=== PATIENT | male | born 1995 | race Caucasian/White ===

== ENCOUNTER 2019-09-24 00:51 | Emergency (ER) | payer OTHER ==
--- NOTE | 2019-09-24 01:37 | ED Physician Documentation ---
History of Present Illness - Stated complaint Stated Complaint: LT FT PX - Chief complaint Chief Complaint: Trauma Ext - History obtained from History obtained from: Patient - History of Present Illness Timing: Enter time (15:00), Today Pain level max: 6 Pain level now: 3 Improved by: rest, non-weight bearing Worsened by: weight-bearing, palpation (particularly plantar surface at 2nd and 3rd metatarsal heads) - Additonal information Additional information: denies injury Review of Systems Skin: reports: Reviewed and negative Musculoskeletal: reports: Extremity pain, Pain with weight bearing. denies: Extremity swelling Neurologic: denies: Focal weakness, Numbness PD PAST MEDICAL HISTORY - Past Medical History Past Medical History: No - Present Medications Home Medications: Ambulatory Orders Medication Instructions Recorded Confirmed HYDROcod/ACETAM 5/325 [Cisco 5/325] 1 - 2 ea PO Q6H PRN #15 tablet 09/24/19 Indomethacin 50 mg PO TID PRN #20 capsule 09/24/19 - Allergies Allergies/Adverse Reactions: Allergies Allergy/AdvReac Type Severity Reaction Status Date / Time nickel Allergy Rash Verified 09/24/19 01:01 - Living Situation Living Arrangement: reports: At home - Social History Does the pt smoke?: No PD ED PE NORMAL - Vitals Vital signs reviewed: Yes - General General: Alert and oriented X 3, No acute distress, Well developed/nourished - Derm Derm: Normal color, Warm and dry, No rash - Extremities Extremities: No deformity, Normal ROM s pain, No edema, No calf tenderness / cord, Other (mild tenderness to palpation over 2nd and 3rd metatarsal heads (left), particularly on plantar surface) - Neuro Neuro: No motor deficit, No sensory deficit Results - Vitals Vitals: Oxygen O2 Source Room air - Rads (name of study) xrays left foot Radiology: Prelim report reviewed, See rad report PD MEDICAL DECISION MAKING - ED course Complexity details: reviewed results, re-evaluated patient, considered differential, d/w patient Departure - Departure Disposition: 01 Home, Self Care Clinical Impression: Freiberg's infraction Condition: Good Instructions: ED Acute Pain [facility]O Prescriptions: HYDROcod/ACETAM 5/325 [Cisco 5/325] 1 - 2 ea PO Q6H PRN #15 tablet PRN Reason: Pain Indomethacin 50 mg PO TID PRN #20 capsule PRN Reason: Pain Discharge Date/Time: 09/24/19 03:54
[2019-09-24] MEDS ORDERED: HYDROcod/ACETAM 5/325 MG TABLET PO STA (01:59)
[2019-09-24] MEDS ORDERED: INDOMETHACIN 25 MG CAPSULE PO STA (02:02)
[2019-09-24] MEDS ORDERED: COLCHICINE 0.6 MG TABLET PO STA (02:03)
--- NOTE | 2019-09-24 02:28 | XRAY Report ---
Reason: left foot pain Procedure Date: 09/24/2019 Accession Number: [id number] / [id number] Procedure: XR - Foot 3 View LT CPT Code: Final Report FULL RESULT: EXAM: LEFT FOOT RADIOGRAPHY EXAM DATE: 09/24/2019 02:14 AM CLINICAL HISTORY: Left foot pain. COMPARISON: None. TECHNIQUE: 3 views. FINDINGS: Bones: No acute displaced fractures or suspicious bony lesion. Slight flattening deformity of the second metatarsal head is noted. Joints: No dislocation. Soft Tissues: Mild dorsal soft tissue swelling. IMPRESSION: Slight flattening deformity of the second metatarsal head, which could represent early Freiberg's infraction. No displaced acute fracture. RADIA
[2019-09-24 02:34] VITALS: BP 142/81
== END 2019-09-24 03:54 | disposition home or self-care (01) ==
LOC: ED 00:51
DX: M92.72 Juvenile osteochondrosis of metatarsus, left foot (principal)
CPT/HCPCS: 73630; 99283; A9270

== ENCOUNTER 2019-10-31 12:19 | Outpatient (CLI) | payer OTHER ==
--- NOTE | 2019-10-31 15:01 | MRI Report ---
Reason: PAIN IN LT FOOT Procedure Date: 10/31/2019 Accession Number: [id number] / [id number] Procedure: MRI - Foot LT W/WO CPT Code: Final Report FULL RESULT: EXAM: LEFT FOREFOOT MRI WITHOUT AND WITH CONTRAST EXAM DATE: 10/31/2019 02:09 PM. CLINICAL HISTORY: Left foot metatarsal pain without trauma. COMPARISON: FOOT 3 VIEW LT 09/24/2019 1:59 AM. TECHNIQUE: Multiplanar, multisequence T1-weighted and fluid-sensitive sequences of the forefoot before and after administration of intravenous contrast. IV contrast: 10 cc Gadavist. Other: None. FINDINGS: Bones: There is mild cortical irregularity with minimal subjacent marrow edema and enhancement located along the plantar and lateral aspect of the base of the second metatarsal slightly distal to the second tarsometatarsal joint space and there is edema and enhancement of the immediately overlying soft tissues. This finding is best seen on the short axis images, series 1101 image 30. The opposing third metatarsal base demonstrates normal signal and contour. Findings are nonspecific. This could reflect a rheumatologic erosion. It is not a typical appearance for infection. It is not concerning for neoplasm. It is not likely posttraumatic. Osseous structures elsewhere are normal. No further potential erosions elsewhere. Joints: No subluxations. No effusions. The [id number] complex is unremarkable. The visualized plantar plates are unremarkable. Articular Cartilage: Unremarkable. Tendons: The flexor and extensor tendons are unremarkable. Musculature: No edema or fatty atrophy. Other: No Mortons neuroma. No intermetatarsal bursitis. The subcutaneous tissues are unremarkable. No abscess or cellulitis. IMPRESSION: 1. Mild cortical irregularity and subcortical marrow edema in the medial base of the second metatarsal with mild overlying soft tissue edema and enhancement. Signal and cortical contour in the opposing third metatarsal base is normal. Findings are somewhat nonspecific; this could reflect a rheumatologic erosion. This is not likely to reflect infection, neoplasm, or trauma. RADIA
== END 2019-10-31 12:20 | disposition home or self-care (01) ==
LOC: DI 12:19
DX: M79.672 Pain in left foot (principal); R60.0 Localized edema
CPT/HCPCS: 73720; A9585